=== PATIENT | male | born 1960 | race Caucasian/White ===

== ENCOUNTER → 2022-05-15 | Outpatient (CLI) | payer BC ==
[~2022-05-15] MED LIST: ASPIRIN 325MG325 MG PO; CRESTOR 10 MG T10 MG PO; ENTRESTO 49 MG1 EACH PO; FLOMAX 0.4 MG0.4 MG PO; GLIPIZIDE5 MG PO; JARDIANCE25 MG PO; LOW DOSE ASPIRI81 MG PO; MELOXICAM15 MG PO; TRULICITY0.75 MG/0. SQ; VITAMIN D325 MC6 PO
[2022-05-15 11:07] LABS: BUN/CREATININE RATIO 19 (0-10)
== END ==
LOC: LAB 09:50
PROVIDERS: Orthopaedic Surgery
DX: Z01.812 Encounter for preprocedural laboratory examination (principal)
CPT/HCPCS: 36415; 80048; 86850; 86900; 86901

== ENCOUNTER 2022-05-16 06:49 | Observation (INO) | payer MEDICARE ==
[~2022-05-16] VITALS: Ht 167.6 cm; Wt 123.8 kg
[~2022-05-16 06:49] MED LIST changes: -ASPIRIN 325MG325 MG PO
[2022-05-16 18:05] LABS: HEMOGLOBIN 15.8 gm/dl (14.0-17.5); RED BLOOD COUNT 5.42 M/UL (4.20-5.50); WHITE BLOOD COUNT 12.8 K/UL (4.5-11.0)
[2022-05-16 18:31] LABS: BUN/CREATININE RATIO 30 (0-10)
[2022-05-17 05:23] LABS: HEMOGLOBIN 14.5 gm/dl (14.0-17.5); RED BLOOD COUNT 5.1 M/UL (4.20-5.50); WHITE BLOOD COUNT 13.5 K/UL (4.5-11.0)
[2022-05-17] MEDS ORDERED: ASPIRIN 325MG325 MG PO (08:43)
[2022-05-17 14:06] LABS: BUN/CREATININE RATIO 29 (0-10)
== END 2022-05-17 12:30 | disposition home or self-care (01) ==
LOC: OR 06:49 → CCU 13:47
PROVIDERS: Internal Medicine; ADMIT Orthopaedic Surgery
DX: M17.11 Unilateral primary osteoarthritis, right knee (principal); I11.0 Hypertensive heart disease with heart failure; I50.9 Heart failure, unspecified; E78.5 Hyperlipidemia, unspecified; K21.9 Gastro-esophageal reflux disease without esophagitis; E11.9 Type 2 diabetes mellitus without complications; G47.33 Obstructive sleep apnea (adult) (pediatric); F17.220 Nicotine dependence, chewing tobacco, uncomplicated; Z99.89 Dependence on other enabling machines and devices; Z88.8 Allergy status to other drugs, medicaments and biological substances; Z79.82 Long term (current) use of aspirin; Z79.1 Long term (current) use of non-steroidal anti-inflammatories (NSAID); Z79.84 Long term (current) use of oral hypoglycemic drugs; Z79.899 Other long term (current) drug therapy
CPT/HCPCS: 96374; 96376; 36415; 73560; 76000; 80048; 80053; 82962; 83735; 85025; 97116-GP-CQ; 97161; 97166; 97530; 97535; C1713; C1776; G0378; J0171; J0690; J1100; J1885; J2001; J2405; J2704; J2710; J2795